=== PATIENT | male | born 2000 | race Hispanic/Latino ===

== ENCOUNTER 2024-07-05 19:52 | Emergency (ER) | payer SELFPAY ==
[~2024-07-05] VITALS: Ht 170.2 cm; Wt 81.0 kg
[2024-07-05] MEDS ORDERED: IBUPROFEN 800 MG/TAB PO ONE (21:10)
[2024-07-05 21:42] VITALS: BP 171/108
[2024-07-05] MEDS ORDERED: hydrALAZINE HCL 25 MG/TAB PO ONE (21:45)
[2024-07-05 22:00] VITALS: BP 144/92
[2024-07-05 22:30] VITALS: BP 155/96
[2024-07-05 23:00] VITALS: BP 152/92
[2024-07-05] MEDS ORDERED: HYDRALAZINE HYD25 MG PO (23:08)
[2024-07-05 23:20] VITALS: BP 152/92
== END 2024-07-05 23:20 | disposition home or self-care (01) | DRG 556 ==
LOC: ED 19:52
DX: M25.571 Pain in right ankle and joints of right foot (principal); I10 Essential (primary) hypertension; T46.5X6A Underdosing of other antihypertensive drugs, initial encounter; Z91.128 Patient's intentional underdosing of medication regimen for other reason